=== PATIENT | female | born 1990 | race Caucasian/White ===

== ENCOUNTER 2017-01-30 21:57 | Emergency (ER) | payer BC ==
[2017-01-30] MEDS ORDERED: Dexamethasone 4 mg/ml Vial ONE ×2 (22:17→22:18)
[2017-01-30] MEDS ORDERED: Famotidine 20 MG TAB ONE (22:17)
[2017-01-30] MEDS ORDERED: Dexamethasone 4 MG TAB ONE (22:18)
== END 2017-01-30 22:42 | disposition home or self-care (01) ==
LOC: SCSER 21:57
DX: L50.9 Urticaria, unspecified (principal); T45.0X5A Adverse effect of antiallergic and antiemetic drugs, initial encounter
CPT/HCPCS: 96372; J1100; J8540